=== PATIENT | male | born 1960 ===

== ENCOUNTER → 2022-03-06 13:17 | Outpatient (BNVA) | payer OTHER, SELFPAY | PROVIDERS: Visit Provider Surgery | DX: Z12.11 Encounter for screening for malignant neoplasm of colon (principal); Z86.010 Personal history of colon polyps | CPT/HCPCS: 99203 ==

== ENCOUNTER 2023-08-29 23:30 | Emergency (ER) | payer OTHER, SELFPAY ==
[2023-08-29 23:37] VITALS: BP 158/95; PULSE 66; RESP 16; TEMP 36.9; O2SAT 95
--- NOTE | 2023-08-29 23:40 | XRR_ITS ---
PROCEDURE INFORMATION: Exam: XR Right Hand Exam date and time: 08/30/2023 12:10 AM Age: 63 years old Clinical indication: Injury or trauma; Blunt trauma (contusions or hematomas); Right; Patient HX: C/O diffuse pain to RT hand after punching a wall yesterday. ; Additional info: Trauma pain TECHNIQUE: Imaging protocol: Radiologic exam of the right hand. Views: 3 or more views. COMPARISON: No relevant prior studies available. FINDINGS: Bones/joints: No evidence of acute fracture or dislocation. No erosive disease. Mild generalized degenerative change. Soft tissues: Normal. XR/XR hand RT min 3V* [id number] IMPRESSION: No acute bony injury.
--- NOTE | 2023-08-29 23:51 | W.ED.UPPEXIN ---
HPI - Extremity Injury (Upper) General: Chief Complaint: Extremity Injury, Upper Stated Complaint: Rt hand Swollen Time Seen by Provider: 08/29/23 23:48 Source: patient Mode of arrival: ambulatory Limitations: no limitations History of Present Illness: Patient is a 63-year-old male who presents to ED today for evaluation of a right hand injury that he sustained yesterday after punching a wall. Patient states he has had previous punching injuries and states he has broken that hand before several years ago. complaint: injury to: right and hand Onset (ago): day(s) (yesterday) Other Extremity Injury: Right: hand Other injuries: none Handedness: right Place: home Severity: moderate Relieving factors: immobilization Exacerbating factors: movement of extremity Context: direct blow Associated symptoms: Reports no associated symptoms Review of Systems Musc: Reports: extremity pain (R hand) and extremity swelling (dorsum R hand) Skin/Breast: Reports: other (no abrasions/lacerations) Neuro: Reports: numbness in extremities and sensory changes PFSH ED PFSH: Medical History History of colon polyps Borderline diabetes Colon cancer screening Surgical History Hx of appendectomy Hx of colonoscopy with polypectomy Hx of cholecystectomy Social History Smoking and tobacco/nicotine status: current every day tobacco/nicotine user Physical Exam Const: COMMON NORMALS: no acute distress, patient oriented x3, no limitations, alert and well nourished Extremity: COMMON NORMALS: capillary refill normal GENERAL: Yes normal exam except as noted RIGHT UPPER EXTREMITY: Yes hand & digits (TTP dorsum R hand mainly to 2-4 metacarpals and MCP joints) Right hand and digits: Yes neurovascular exam (normal) Neuro: COMMON NORMALS: patient oriented x3, moves all extremities, no focal motor deficits and no sensory deficits noted SENSORIUM/ORIENTATION: Yes alert Skin: TRAUMA: no lacerations or abrasions Course Vital Signs: Vital signs: Vital Signs Temperature 98.5 F 08/29/23 23:37 Pulse Rate 66 08/29/23 23:37 Respiratory Rate 16 08/29/23 23:37 Blood Pressure 158/95 08/29/23 23:37 Pulse Oximetry 95 08/29/23 23:37 Oxygen Delivery Me thod Room Air 08/29/23 23:37 MDM - Extremity Injury (Upper) Medical Decision Making Personal interpretation of patient's hand XR showing no acute fracture. He has old deformity to his fifth metacarpal. Patient will be discharged with instructions for ice, elevation, OTC analgesics. He can follow-up with primary care in 1 to 2 weeks if symptoms do not seem to be improving. XR interpretation done by ED provider, pending radiology final review Discharge Plan Discharge Patient Disposition: Home Clinical Impression: Contusion of hand, right Qualifiers: Encounter type: initial encounter Qualified Code(s): S60.221A - Contusion of right hand, initial encounter Condition: Stable Prescriptions: No Action lisinopril 20 mg tablet 20 mg PO DAILY metoprolol tartrate 100 mg tablet 100 mg PO BID ascorbate calcium (vitamin C) 500 mg tablet 500 mg PO DAILY glimepiride 4 mg tablet 4 mg PO DAILY potassium citrate PO .1 daily peg 3350-electrolytes [Golytely] 236-22.74-6.74 -5.86 gram recon soln 240 ml PO Q10M Qty: 4000 0RF Rx Instructions: until fecal effluent is clear Discharge Orders: Discharge ED (Routine); Ordered 08/30/23 Ordered By: Morena Cisneros Patient Instructions: Contusion Coding Level of Care Code ED Analysis Engineer for [facility]
[2023-08-30 00:24] VITALS: PULSE 89; RESP 16; O2SAT 97
== END 2023-08-30 00:29 | disposition home or self-care (01) ==
PROVIDERS: Emergency Provider Physician Assistant
DX: S60.221A Contusion of right hand, initial encounter (principal); Z79.84 Long term (current) use of oral hypoglycemic drugs; Z72.0 Tobacco use; W22.09XA Striking against other stationary object, initial encounter
CPT/HCPCS: 73130; 99283

== ENCOUNTER 2024-01-08 13:07 | Emergency (ER) | payer OTHER, MEDICARE, SELFPAY ==
--- NOTE | 2024-01-08 14:31 | ED_ITS ---
HPI - Extremity Injury (Upper) General: Chief Complaint: Extremity Injury, Upper Stated Complaint: Right arm bruises and pain Time Seen by Provider: 01/08/24 14:28 History of Present Illness: 63-year-old male patient was removing a heavy recliner on Friday when he felt a pop in the lower part of his biceps. Patient states that since then he noticed some increasing bruising to the biceps area of the arm. Patient also reports tenderness in the distal part of the biceps. Patient denies use of blood thinners. Patient has distal pulses and sensation intact. Patient has good range of motion of the arm. Review of Systems General: Reports: 10 or more systems reviewed and unremarkable except in HPI and below Musc: Reports: extremity pain PFSH ED PFSH: Medical History History of colon polyps Borderline diabetes Colon cancer screening Surgical History Hx of appendectomy Hx of colonoscopy with polypectomy Hx of cholecystectomy Social History Smoking and tobacco/nicotine status: current every day tobacco/nicotine user Physical Exam Const: COMMON NORMALS: alert HENMT: COMMON NORMALS: normocephalic HEAD & SCALP: normocephalic Neck/C-Spine: COMMON NORMALS: full ROM Chest: COMMONS NORMALS: normal inspection of the chest Resp: COMMON NORMALS: normal respiratory effort Cardio: COMMON NORMALS: regular rate RATE: regular rate GI: COMMON NORMALS: Soft to palpation and non-tender PALPATION: Yes Soft to palpation Back/Pelvis: COMMON NORMALS: thoracic and lumbar spine normal to inspection Extremity: RIGHT UPPER EXTREMITY: Yes upper arm (Distal bruising and tenderness to the arm.) Right upper arm: Yes inspection, Yes palpation and Yes neurovascular exam Neuro: SENSORIUM/ORIENTATION: Yes alert Skin: COMMON NORMALS: turgor normal GENERAL SKIN EXAM: turgor normal Course Vital Signs: Vital signs: Vital Signs Temperature 97.9 F 01/08/24 14:33 Pulse Rate 77 01/08/24 14:33 Respiratory Rate 18 01/08/24 14:33 Blood Pressure 167/101 01/08/24 14:33 Pulse Oximetry 97 01/08/24 14:33 Oxygen Delivery Me thod Room Air 01/08/24 14:33 MDM - Extremity Injury (Upper) Medical Decision Making 63-year-old male patient comes in today for complaints of injury to the right upper arm. Patient reports on Friday he was pulling and felt a pop in the biceps area of his arm. Since then he has had pain and discomfort to the biceps of the right arm. On exam he has a distal bruising and tenderness of the biceps area. Normal range of motion. Distal pulses and sensation are intact. Differential diagnosis includes but not limited to biceps tendon rupture, contusion, hematoma, sprain. Believe patient most likely has a biceps tendon rupture. We will go ahead and refer to orthopedics for further evaluation and treatment. It appears to be a distal rupture and most likely require only conservative treatment. No radiology studies performed this visit Discharge Plan Discharge Patient Disposition: Home Clinical Impression: Rupture of biceps tendon Qualifiers: Encounter type: initial encounter Laterality: right Qualified Code(s): S46.211A - Strain of muscle, fascia and tendon of other parts of biceps, right arm, initial encounter Condition: Stable Prescriptions: New hydrocodone-acetaminophen 5-325 mg tablet 1 tab PO Q8H PRN (Reason: pain) Qty: 10 0RF No Action lisinopril 20 mg tablet 20 mg PO DAILY metoprolol tartrate 100 mg tablet 100 mg PO BID ascorbate calcium (vitamin C) 500 mg tablet 500 mg PO DAILY glimepiride 4 mg tablet 4 mg PO DAILY potassium citrate PO .1 daily peg 3350-electrolytes [Golytely] 236-22.74-6.74 -5.86 gram recon soln 240 ml PO Q10M Qty: 4000 0RF Rx Instructions: until fecal effluent is clear Discharge Orders: Discharge ED (Routine); Ordered 01/08/24 Ordered By: Morgan Duggan Discharge Diet: Usual diet Discharge Activity: Increase activity as tolerated Patient Instructions: Biceps Tendon Rupture Activity Restrictions/Additional Instructions: Use cold packs to the arm for pain and discomfort. Activity as tolerated. Light activity is recommended. Avoid straining or pulling hard on the arm. Follow-up with dentofacial orthopedics dentist for further evaluation and treatment. Return to ED for new concerns. Coding Level of Care Code ED Sifter And Miller for [facility]
[2024-01-08 14:33] VITALS: BP 167/101; PULSE 77; RESP 18; TEMP 36.6; O2SAT 97; BMI 25.8
[2024-01-08 15:00] VITALS: BP 158/99; PULSE 72; RESP 14; TEMP 36.6; O2SAT 98
--- NOTE | 2024-01-08 16:31 | DCPLANNER ---
messaged ortho for er f/u
== END 2024-01-08 14:58 | disposition home or self-care (01) ==
PROVIDERS: Emergency Provider Nurse Practitioner Family
DX: S46.211A Strain of muscle, fascia and tendon of other parts of biceps, right arm, initial encounter (principal); Z79.84 Long term (current) use of oral hypoglycemic drugs; Z72.0 Tobacco use; X50.0XXA Overexertion from strenuous movement or load, initial encounter
CPT/HCPCS: 99283

== ENCOUNTER → 2025-02-10 08:45 | Outpatient (BNVA) | payer OTHER, SELFPAY | PROVIDERS: Visit Provider Student in an Organized Health Care Education/Training Program | DX: R19.7 Diarrhea, unspecified (principal) | CPT/HCPCS: 99204 ==

== ENCOUNTER 2025-03-08 09:51 | Day surgery (SDC) | payer OTHER, SELFPAY ==
[2025-03-08 10:57] VITALS: BP 113/85; PULSE 72; RESP 18; TEMP 36.1; BMI 26.5
--- NOTE | 2025-03-08 11:20 | W.PM.OPSFHP ---
Same Day Surgery H&P Indication for Procedure/HPI DATE OF PROCEDURE: March 08, 2025 CHIEF COMPLAINT/INDICATIONFOR SURGICAL PROCEDURE: changes in bowel habits PREOP DIAGNOSIS: changes in bowel habits PLANNED PROCEDURE: Operation Date: 03/08/25 12:15 Proposed Procedures p Colonoscopy 03231 Z86.010 R19.7(Not Applicable) - Karlo Gay MD Medications/Allergies* Home Medications ?Medication ?Instructions ?Recorded ?Confirmed ?Type ascorbate calcium (vitamin C) 500 500 mg PO DAILY 03/06/22 03/04/25 History mg tablet glimepiride 4 mg tablet 4 mg PO DAILY 03/06/22 03/04/25 History lisinopril 20 mg tablet 20 mg PO DAILY 03/06/22 03/04/25 History metoprolol tartrate 100 mg tablet 50 mg PO BID 03/06/22 03/08/25 History potassium citrate 1 tab PO DAILY 03/06/22 03/04/25 History Allergies/Adverse Reactions Allergy/AdvReac Type Severity Reaction Status Date / Time No Known Allergies Allergy Verified 03/04/25 09:12 Current Medications: Generic Name Dose Route Start Last Admin Trade Name Freq PRN Reason Stop Dose Admin Sodium Chloride 1,000 mls @ 15 mls/hr 03/08/25 10:46 03/08/25 11:08 Sodium Chloride 0.9% IV 03/09/25 10:45 15 mls/hr .Q24H PRN Administration COLONOSCOPY FLUIDS Pertinent History/Comorbid Conditions* Medical History (Updated 01/16/24 @ 00:02 by AYLA Zhang) History of colon polyps Borderline diabetes Colon cancer screening Surgical History (Updated 03/06/22 @ 14:16 by Kishor Darnell DO) Hx of appendectomy Hx of colonoscopy with polypectomy Hx of cholecystectomy Social History Smoking and tobacco/nicotine status: never used tobacco/nicotine Pertinent Exam Findings alert, oriented x 3, clear to auscultation bilaterally, regular rate & rhythm and procedure specific exam findings abdomen soft, nt, nd Recommendations Risks and benefits of procedure reviewed and Patient/family agree to proceed Surgery/Procedure today Coding Level of Care Code Acute Code for Chg Fwd
--- NOTE | 2025-03-08 11:46 | ANES.PREANE2 ---
Pre-Anesthetic Assessment Height/Weight: Height 1.78 m Weight 83.915 kg Temp Pulse Resp BP O2 Del Method 97.0 F L 72 18 113/85 Room Air 03/08/25 10:57 03/08/25 10:57 03/08/25 10:57 03/08/25 10:57 03/08/25 10:57 Preop Diagnosis: changes in bowel habits Operation Date: 03/08/25 12:15 Proposed Procedures p Colonoscopy 40140 Z86.010 R19.7(Not Applicable) - Karlo Gay MD Familial anesthetic complications: None Was Beta Lenny taken within 24 hours: Yes Was Clonidine taken within 24 hours: N/A Last intake: Intake Last Liquid Date 03/07/25 Last Liquid Time 07:30 Last Solid Date 03/06/25 Last Solid Time 21:00 Social Tobacco (Chewing tobacco. None this morning) and No alcohol Exam alert, oriented x 3, clear to auscultation bilaterally and regular rate & rhythm Airway Submandibular: within normal limits Cervical ROM: within normal limits Mallampati: Class III Dentition: false (Upper dentures, few teeth on bottom) History/ROS No significant history except as noted and No significant complaints Pulmonary None reported CV/HEM Coronary Artery Disease and Hypertension Hx kidney stones Hepatic None reported GI None reported Metabolic Diabetes Mellitus and Hyperlipidemia Musc/skel Osteoarthritis/DJD Neuropsych None reported Anesthetic Plan ASA status: 3 Anesthesia: Anesthesia Evaluation, General and MAC Risk of > 500 ml blood loss (7ml/kg in children): No Medications/Allergies Home Medications ?Medication ?Instructions ?Recorded ?Confirmed ?Last Taken ?Type ascorbate calcium (vitamin C) 500 500 mg PO DAILY 03/06/22 03/04/25 03/04/25 History mg tablet glimepiride 4 mg tablet 4 mg PO DAILY 03/06/22 03/04/25 03/04/25 History lisinopril 20 mg tablet 20 mg PO DAILY 03/06/22 03/04/25 03/04/25 History metoprolol tartrate 100 mg tablet 50 mg PO BID 03/06/22 03/08/25 03/08/25 History 0800 potassium citrate 1 tab PO DAILY 03/06/22 03/04/25 03/04/25 History hydrocodone 5 mg-acetaminophen 325 1 tab PO Q8H PRN pain #10 tabs 01/08/24 03/04/25 03/04/25 Rx mg tablet ondansetron 8 mg disintegrating 8 mg PO Q8H PRN nausea and 02/10/25 03/04/25 03/04/25 Rx tablet vomiting #3 tabs Allergies Allergy/AdvReac Type Severity Reaction Status Date / Time No Known Allergies Allergy Verified 03/04/25 09:12 Current Medications Generic Name Dose Route Start Last Admin Trade Name Freq PRN Reason Stop Dose Admin Sodium Chloride 1,000 mls @ 15 mls/hr 03/08/25 10:46 03/08/25 11:08 Sodium Chloride 0.9% IV 03/09/25 10:45 15 mls/hr .Q24H PRN Administration COLONOSCOPY FLUIDS PFSH Anesthesia Medical History History of colon polyps Borderline diabetes Colon cancer screening Surgical History Hx of appendectomy Hx of colonoscopy with polypectomy Hx of cholecystectomy Social History Smoking and tobacco/nicotine status: never used tobacco/nicotine
--- NOTE | 2025-03-08 12:20 | PC.NURSE ---
cecum no reached d/t poor prep
[2025-03-08 12:25] VITALS: BP 107/78; PULSE 64; RESP 16; O2SAT 94
[2025-03-08 12:47] VITALS: BP 133/68; PULSE 73; RESP 16; O2SAT 95
--- NOTE | 2025-03-08 13:15 | ANE.PACU2 ---
Inpatient post-anesthesia follow up: Airway intact: Yes Vital signs: Temperature 97.0 F Pulse Rate 73 Respiratory Rate 16 Blood Pressure 133/68 Pulse Oximetry 95 Oxygen Delivery Me thod Room Air Oxygen Flow Rate Fraction of Inspir ed Oxygen Hydration adequate: Yes Nausea and vomiting: No Pain level: 1 Mental status: Baseline
== END 2025-03-08 13:15 | disposition home or self-care (01) ==
PROVIDERS: Visit Provider Student in an Organized Health Care Education/Training Program
PROC: 0DJD8ZZ Inspection of Lower Intestinal Tract, Via Natural or Artificial Opening Endoscopic (ICD-10-PCS; CPT 45378; principal; 2025-03-08 12:15)
DX: R19.4 Change in bowel habit (principal); I25.10 Atherosclerotic heart disease of native coronary artery without angina pectoris; I10 Essential (primary) hypertension; E11.9 Type 2 diabetes mellitus without complications; E78.5 Hyperlipidemia, unspecified; F17.220 Nicotine dependence, chewing tobacco, uncomplicated
CPT/HCPCS: 36416; 45378; 82962; J2704; J7030

== ENCOUNTER 2025-04-21 12:07 | Emergency (ER) | payer OTHER, SELFPAY ==
[2025-04-21 12:09] VITALS: BP 121/83; PULSE 75; RESP 18; TEMP 36.7; O2SAT 98; BMI 27.2
--- NOTE | 2025-04-21 12:48 | ED_ITS ---
HPI - Extremity Problem 2 General: Chief complaint: Extremity Problem,Nontraumatic Stated complaint: Both leg Painful shakey Time Seen by Provider: 04/21/25 12:46 History of Present Illness: 64-year-old man presents emergency room with concerns for weak and shaky legs. He has a history of diabetes and hypertension. He is also had low potassium in the past and is concerned this might be what it is. He contacted the [facility] and they told him to come to the emergency room. No fevers. No altered mental status. No chest pain. Related Data Home Medications ?Medication ?Instructions ?Recorded ?Confirmed ascorbate calcium (vitamin C) 500 500 mg PO DAILY 02/1803/04/25 mg tablet glimepiride 4 mg tablet 4 mg PO DAILY 03/06/2203/04 lisinopril 20 mg tablet 20 mg PO DAILY 03/06/2202/18 metoprolol tartrate 100 mg tablet 50 mg PO BID 2 03/08/25 potassium citrate 1 tab PO DAILY 03/06/2202/18 Previous Rx's ?Medication ?Instructions ?Recorded hydrocodone 5 mg-acetaminophen 325 1 tab PO Q8H PRN pa in #10 tabs 01/08/24 mg tablet ondansetron 8 mg disintegrating 8 mg PO Q8H PRN nausea and 02/10/25 tablet vomiting #3 tabs cephalexin 500 mg tablet 500 mg PO TID 5 days #15 tab s 04/21/25 Allergies Allergy/AdvReac Type Severity Reaction Status Date / Time No Known Allergies Allergy Verified 03/04/25 09:12 Review of Systems 2 Narrative: Constitutional symptoms: Negative except as documented in HPI. Skin symptoms: Negative except as documented in HPI. Eye symptoms: Negative except as documented in HPI. ENMT symptoms: Negative except as documented in HPI. Respiratory symptoms: Negative except as documented in HPI. Cardiovascular symptoms: Negative except as documented in HPI. Gastrointestinal symptoms: Negative except as documented in HPI. Genitourinary symptoms: Negative except as documented in HPI. Musculoskeletal symptoms: Negative except as documented in HPI. Neurologic symptoms: Negative except as documented in HPI. Psychiatric symptoms: Negative except as documented in HPI. Endocrine symptoms: Negative except as documented in HPI. PFS ED 2 PFSH: Medical History (Updated 04/21/25 @ 14:07 by Lani Perdomo MD) History of colon polyps Borderline diabetes Colon cancer screening Surgical History Hx of appendectomy Hx of colonoscopy with polypectomy Hx of cholecystectomy Social History Smoking and tobacco/nicotine status: never used tobacco/nicotine Physical Exam 2 Narrative: EXAM NARRATIVE: General: Alert, no acute distress. Skin: Warm, dry. Head: Normocephalic, atraumatic. Neck: Supple, trachea midline. Eye: Extraocular movements are intact. Ears, nose, mouth and throat: mucosa moist. Cardiovascular: Regular, Normal peripheral perfusion. Respiratory: Lungs are clear to auscultation, respirations are non-labored, breath sounds are equal, Symmetrical chest wall expansion. Gastrointestinal: Soft, Nontender, Non distended Musculoskeletal: Normal ROM, no deformity. Neurological: Alert and oriented, No focal neurological deficit observed. Psychiatric: Cooperative, appropriate mood & affect. Course 2 Vital Signs: Vital signs: Vital Signs Temperature 98.1 F 04/21/25 12:09 Pulse Rate 73 04/21/25 14:57 Respiratory Rate 18 04/21/25 12:09 Blood Pressure 108/78 04/21/25 14:57 Pulse Oximetry 93 04/21/25 14:57 Oxygen Delivery Me thod Room Air 04/21/25 12:09 MDM - Extremity (Nontraumatic) Medical Decision Making Medical decision making: Differential diagnosis for patient presenting with generalized weakness including but not limited to and based on the above HPI, review of systems and physical exam: Sepsis. Dehydration. Renal failure. Electrolyte abnormalities. Anemia. Congestive heart failure. Hypotension. Coronary syndrome. Hepatitis. Cirrhosis. Infections such as pneumonia, urinary tract infection, [place]ne illness, Cellulitis, Viral infections including influenza and Covid-19. Workup: labwork and lab/exam driven imaging ordered to evaluate, rule in and rule out above pathologies. Lab Review: Laboratory results were reviewed and interpreted by myself the emergency room physician. No leukocytosis. No anemia. Potassium is normal. Renal function is normal. Blood glucose is elevated at 355. Fluids were given. Urinalysis is positive for signs of infection. I reviewed the patient's medical record. Reexamination: Patient remained stable. No increased work of breathing. No altered mental status. No focal motor deficits. Assessment and plan: Dehydration Urinary tract infection ? Normal saline bolus and IV Rocephin - Discharged home - Discussed plan with patient. Answered any questions. - Evaluation and treatment of this problem were appropriate in the emergency setting. Lab Data 04/21/25 13:35 04/21/25 13:35 Laboratory Results WBC 7.19 10^3/uL (3.29-11.43) 04/21/25 13:35 RBC 5.16 10^6/uL (3.85-5.65) 04/21/25 13:35 Hgb 15.60 g/dL (11.27-16.99) 04/21/25 13:35 Hct 44.5 % (37-53) 04/21/25 13:35 MCV 86.2 fl (82-101) 04/21/25 13:35 MCH 30.2 pg (27-33) 04/21/25 13:35 MCHC 35.1 g/dL (30-55) 04/21/25 13:35 RDW 12.9 % (12.1-15.1) 04/21/25 13:35 Plt Count 170 10^3/cmm (157-399) 04/21/25 13:35 MPV 10.4 fL (7.4-10.4) 04/21/25 13:35 Neut % (Auto) 68.4 % 04/21/25 13:35 Lymph % (Auto) 22.4 % 04/21/25 13:35 Wetzel % (Auto) 8.3 % 04/21/25 13:35 Eos % (Auto) 0.1 % 04/21/25 13:35 Baso % (Auto) 0.4 % 04/21/25 13:35 Neut # (Auto) 4.91 10^3/uL (1.8-7.7) 04/21/25 13:35 Lymph # (Auto) 1.6 10^3/uL (0.8-4.8) 04/21/25 13:35 Wetzel # (Auto) 0.6 10^3/uL (0.2-0.9) 04/21/25 13:35 Eos # (Auto) 0.0 10^3/uL (0.0-0.8) 04/21/25 13:35 Baso # (Auto) 0.0 10^3/uL (0.0-0.1) 04/21/25 13:35 Nucleated RBC % (auto) 0 % 04/21/25 13:35 Nucleated RBCs # 0.0 /100WBC 04/21/25 13:35 Sodium 138 mmol/L (136-145) 04/21/25 13:35 Potassium 3.7 mmol/L (3.5-5.1) 04/21/25 13:35 Chloride 100 mmol/L (98-107) 04/21/25 13:35 Carbon Dioxide 24 mmol/L (22-29) 04/21/25 13:35 Anion Gap 17.7 (5-19) 04/21/25 13:35 BUN 14 mg/dL (8-23) 04/21/25 13:35 Creatinine 0.8 mg/dL (0.7-1.2) 04/21/25 13:35 GFR Calculation 96.7 mL/min (90-130) 04/21/25 13:35 Glucose 355 mg/dL (65-115) H 04/21/25 13:35 Calculated Osmolality 301 mOsm/kg (285-295) H 04/21/25 13:35 Lactic Acid 2.3 mmol/L (0.5-2.2) H 04/21/25 13:35 Calcium 9.6 mg/dL (8.5-10.5) 04/21/25 13:35 Magnesium 2.1 mg/dL (1.7-2.3) 04/21/25 13:35 Total Bilirubin 0.9 mg/dL (0.15-1.2) 04/21/25 13:35 AST 26 U/L (0-40) 04/21/25 13:35 ALT 43 U/L (0-41) H 04/21/25 13:35 Alkaline Phosphatase 92 U/L (40-130) 04/21/25 13:35 Total Protein 6.8 g/dL (6.6-8.7) 04/21/25 13:35 Albumin 4.0 g/dL (3.5-5.2) 04/21/25 13:35 Globulin 2.8 g/dL (1.3-4.6) 04/21/25 13:35 Urine Color Yellow (Yellow) 04/21/25 13:25 Urine Appearance Clear (CLEAR) 04/21/25 13:25 Urine pH 5.5 (5-7) 04/21/25 13:25 Ur Specific [place] 1.053 (1.005-1.030) H 04/21/25 13:25 Urine Protein 1+ (Negative) A 04/21/25 13:25 Urine Glucose (UA) 3+ (Normal) H 04/21/25 13:25 Urine Ketones Trace (Negative) 04/21/25 13:25 Urine Blood Negative (Negative) 04/21/25 13:25 Urine Nitrate Negative (Negative) 04/21/25 13:25 Urine Bilirubin Negative (Negative) 04/21/25 13:25 Urine Urobilinogen 1.0 mg/dL (Negative) 04/21/25 13:25 Ur Leukocyte Esterase Negative (Negative) 04/21/25 13:25 Urine RBC None /hpf (0-2) 04/21/25 13:25 Urine WBC 5-10 /hpf (0-5) H 04/21/25 13:25 Ur Squamous Epith Cells 0-4 /hpf (0-5) H 04/21/25 13:25 Amorphous Sediment Not Reportable 04/21/25 13:25 Urine Bacteria None /hpf (NONE) 04/21/25 13:25 Fine Granular Casts 5-10 /lpf H 04/21/25 13:25 Urine Mucus 1+ /hpf 04/21/25 13:25 No radiology studies performed this visit Discharge Plan Discharge Patient Disposition: Home Clinical Impression: Generalized weakness, Dehydration, UTI (urinary tract infection) Condition: Stable Prescriptions: New cephalexin 500 mg tablet 500 mg PO TID 5 Days Qty: 15 0RF No Action lisinopril 20 mg tablet 20 mg PO DAILY metoprolol tartrate 100 mg tablet 50 mg PO BID ascorbate calcium (vitamin C) 500 mg tablet 500 mg PO DAILY glimepiride 4 mg tablet 4 mg PO DAILY potassium citrate 1 tab PO DAILY ondansetron 8 mg tablet,disintegrating 8 mg PO Q8H PRN (Reason: nausea and vomiting) Qty: 3 0RF hydrocodone-acetaminophen 5-325 mg tablet 1 tab PO Q8H PRN (Reason: pain) Qty: 10 0RF Discharge Orders: Discharge ED (Routine); Ordered 04/21/25 Ordered By: Lani Perdomo Discharge Diet: Usual diet Discharge Activity: Increase activity as tolerated Patient Instructions: Urinary Tract Infection in Older Adults (ED), Opioid Safety, Pain Management, Patient Portal & Charo Instructions Activity Restrictions/Additional Instructions: Thank you for choosing [facility] for your healthcare needs today. You have been screened and evaluated and felt safe for discharge. Health conditions do change or evolve sometimes and as such it is important that you follow up with your Primary Doctor to be re checked, 3-5 days is a general good time frame for follow up. You are always welcome to return to the ED for re assessment if your symptoms are worsening or you have new concerns Print Language: Greenlandic Coding Level of Care Code ED Senior Housekeeper for [facility]read [facility]ham
[2025-04-21 13:31] LABS: Glucose Urine UA 3+ (Normal); Nitrate Urine Negative (Negative)
[2025-04-21 13:44] LABS: Hematocrit 44.5 % (37-53); Hemoglobin 15.60 g/dL (11.27-16.99); Mean Corpuscular HGB Conc 35.1 g/dL (30-55); Mean Corpuscular Hemoglobin 30.2 pg (27-33); Mean Corpuscular Volume 86.2 fl (82-101); Nucleated Red Blood Cells % 0 %; Platelet Count 170 10^3/cmm (157-399); Red Blood Count 5.16 10^6/uL (3.85-5.65); White Blood Count 7.19 10^3/uL (3.29-11.43)
[2025-04-21 13:47] LABS: Specific Gravity, Urine 1.053 (1.005-1.030)
[2025-04-21 14:01] LABS: Lactic Sepsis W/Reflex 2.3 mmol/L (0.5-2.2)
[2025-04-21] MEDS: cefTRIAXone 1,000 mg SDV 1000 MG IVP (14:01)
[2025-04-21 14:02] LABS: Alanine Aminotransferase 43 U/L (0-41); Albumin Level 4.0 g/dL (3.5-5.2); Alkaline Phosphatase 92 U/L (40-130); Anion Gap 17.7 (5-19); Aspartate Amino Transferase 26 U/L (0-40); Blood Urea Nitrogen 14 mg/dL (8-23); Calcium 9.6 mg/dL (8.5-10.5); Carbon Dioxide 24 mmol/L (22-29); Chloride 100 mmol/L (98-107); Creatinine Clr Calc Pharmacy 100.5593; Globulin 2.8 g/dL (1.3-4.6); Glucose 355 mg/dL (65-115); Magnesium 2.1 mg/dL (1.7-2.3); Osmolality Calculated 301 mOsm/kg (285-295); Potassium 3.7 mmol/L (3.5-5.1); Sodium 138 mmol/L (136-145); Total Protein 6.8 g/dL (6.6-8.7)
[2025-04-21 14:57] VITALS: BP 108/78; PULSE 73; O2SAT 93
[2025-04-21 15:28] LABS: Reflex Lactate Order REFLEX LACTIC ORDERD
== END 2025-04-21 14:58 | disposition home or self-care (01) ==
PROVIDERS: Emergency Provider Emergency Medicine
DX: R53.1 Weakness (principal); E86.0 Dehydration; N39.0 Urinary tract infection, site not specified
CPT/HCPCS: 36415; 80053; 81001; 83605; 83735; 85025; 87040; 96361; 96374; 99284; J0696; J7030

== ENCOUNTER 2025-05-10 14:06 | Emergency (ER) | payer OTHER, SELFPAY ==
[2025-05-10 14:09] VITALS: BP 116/81; PULSE 112; TEMP 36.8; O2SAT 98
--- NOTE | 2025-05-10 14:23 | W.ED.ABDPA2 ---
HPI - Abdominal Pain General: Chief Complaint: Abdominal Pain Stated Complaint: abd pain , bloating, chills Time Seen by Provider: 05/10/25 14:19 History of Present Illness: 65-year-old male presents emergency room planing of abdominal pain bloating and chills difficult time swallowing. He is able to swallow saliva he has had some nausea and vomiting is complaining of abdominal pain as well Associated Symptoms: Denies chills, dysuria and fever(s) Related Data Home Medications ?Medication ?Instructions ?Recorded ?Confirmed ascorbate calcium (vitamin C) 500 500 mg PO DAILY 03/06/22 03/04/25 mg tablet glimepiride 4 mg tablet 4 mg PO DAILY 03/06/22 03/04/25 lisinopril 20 mg tablet 20 mg PO DAILY 03/06/22 03/04/25 metoprolol tartrate 100 mg tablet 50 mg PO BID 03/06/22 03/08/25 potassium citrate 1 tab PO DAILY 03/06/22 03/04/25 Previous Rx's ?Medication ?Instructions ?Recorded hydrocodone 5 mg-acetaminophen 325 1 tab PO Q8H PRN pain #10 tabs 01/08/24 mg tablet ondansetron 8 mg disintegrating 8 mg PO Q8H PRN nausea and 02/10/25 tablet vomiting #3 tabs Allergies Allergy/AdvReac Type Severity Reaction Status Date / Time No Known Allergies Allergy Verified 05/10/25 14:18 Review of Systems Const: Denies: fever(s) or chills Card: Denies: chest pain Resp: Denies: dyspnea GI: Denies: abdominal pain : Denies: dysuria, urinary frequency or urinary urgency Musc: Denies: neck pain or back pain Skin/Breast: Denies: rash PFSH ED PFSH: Medical History History of colon polyps Borderline diabetes Colon cancer screening Surgical History Hx of appendectomy Hx of colonoscopy with polypectomy Hx of cholecystectomy Social History Smoking and tobacco/nicotine status: never used tobacco/nicotine Physical Exam Const: GENERAL APPEARANCE: cooperative ORIENTATION/CONSCIOUSNESS: Yes awake, Yes oriented to person, Yes oriented to place and Yes oriented to time HENMT: COMMON NORMALS: normocephalic, atraumatic and hearing grossly normal bilaterally HEAD & SCALP: normocephalic and atraumatic Resp: COMMON NORMALS: normal respiratory effort, No retractions, No use of accessory muscles and clear to auscultation bilaterally AUSCULTATION: clear to auscultation bilaterally Cardio: COMMON NORMALS: regular rate, regular rhythm and No murmurs present (Cardio) RATE: regular rate RHYTHM: regular rhythm GI: COMMON NORMALS: Soft to palpation and No hepatosplenomegaly present AUSCULTATION: Yes normoactive bowel sounds PALPATION: Yes Soft to palpation, No Tenderness to palpation present (GI), No Guarding due to palpation present (GI) and Yes No hepatosplenomegaly present Extremity: COMMON NORMALS: normal to inspection, capillary refill normal, no clubbing, cyanosis or edema, no calf tenderness and no pedal edema Neuro: SENSORIUM/ORIENTATION: Yes oriented to person, Yes oriented to place and Yes oriented to time Skin: COMMON NORMALS: no rashes or lesions noted GENERAL SKIN EXAM: no rashes or lesions noted Course Vital Signs: Vital signs: Vital Signs Temperature 98.2 F 05/10/25 14:09 Pulse Rate 112 H 05/10/25 14:09 Blood Pressure 116/81 05/10/25 14:09 Pulse Oximetry 98 05/10/25 14:09 Oxygen Delivery Me thod Room Air 05/10/25 14:09 MDM - Abdominal Pain Lab Data 05/10/25 14:25 05/10/25 14:25 Labs/Radiology: Radiology Impressions Chest X-Ray 05/10/25 14:30 IMPRESSION: No acute cardiopulmonary findings radiographically. Laboratory Results WBC 13.49 10^3/uL (3.29-11.43) H 05/10/25 14:25 RBC 5.53 10^6/uL (3.85-5.65) 05/10/25 14:25 Hgb 16.80 g/dL (11.27-16.99) 05/10/25 14:25 Hct 47.6 % (37-53) 05/10/25 14:25 MCV 86.1 fl (82-101) 05/10/25 14:25 MCH 30.4 pg (27-33) 05/10/25 14:25 MCHC 35.3 g/dL (30-55) 05/10/25 14: RDW 12.6 % (12.1-15.1) 05/10/25 14: Plt Count 192 10^3/cmm (157-399) 05/10/25 14:25 MPV 10.3 fL (7.4-10.4) 05/10/25 14: Neut % (Auto) 74.8 % 05/10/25 14:25 Lymph % (Auto) 14.7 % 05/10/25 14:25 [place] % (Auto) 9.5 % 05/10/25 14: Eos % (Auto) 0.1 % 05/10/25 14: Baso % (Auto) 0.2 % 05/10/25 14: Neut # (Auto) 10.10 10^3/uL (1.8-7.7) H 05/10/25 14: Lymph # (Auto) 2.0 10^3/uL (0.8-4.8) 05/10/25 14:25 [place] # (Auto) 1.3 10^3/uL (0.2-0.9) H 05/10/25 14:25 Eos # (Auto) 0.0 10^3/uL (0.0-0.8) 05/10/25 14:25 Baso # (Auto) 0.0 10^3/uL (0.0-0.1) 05/10/25 14: Nucleated RBC % (auto) 0 % 05/10/25 14: Nucleated RBCs # 0.0 /100WBC 05/10/25 14:25 Sodium 133 mmol/L (136-145) L 05/10/25 14:25 Potassium 3.9 mmol/L (3.5-5.1) 05/10/25 14:25 Chloride 93 mmol/L (98-107) L 05/10/25 14:25 Carbon Dioxide 22 mmol/L (22-29) 05/10/25 14:25 Anion Gap 21.9 (5-19) H 05/10/25 14:25 BUN 16 mg/dL (8-23) 05/10/25 14:25 Creatinine 0.8 mg/dL (0.7-1.2) 05/10/25 14:25 GFR Calculation 96.4 mL/min (90-130) 05/10/25 14:25 Glucose 319 mg/dL (65-115) H 05/10/25 14:25 Calculated Osmolality 289 mOsm/kg (285-295) 05/10/25 14:25 Calcium 9.7 mg/dL (8.5-10.5) 05/10/25 14:25 Total Bilirubin 1.8 mg/dL (0.15-1.2) H 05/10/25 14:25 AST 30 U/L (0-40) 05/10/25 14:25 ALT 45 U/L (0-41) H 05/10/25 14:25 Alkaline Phosphatase 94 U/L (40-130) 05/10/25 14:25 Total Protein 7.1 g/dL (6.6-8.7) 05/10/25 14:25 Albumin 4.1 g/dL (3.5-5.2) 05/10/25 14:25 Globulin 3.0 g/dL (1.3-4.6) 05/10/25 14:25 Lipase 12 U/L (13-60) L 05/10/25 14:25 Discharge Plan Discharge Condition: Stable Prescriptions: No Action lisinopril 20 mg tablet 20 mg PO DAILY metoprolol tartrate 100 mg tablet 50 mg PO BID ascorbate calcium (vitamin C) 500 mg tablet 500 mg PO DAILY glimepiride 4 mg tablet 4 mg PO DAILY potassium citrate 1 tab PO DAILY ondansetron 8 mg tablet,disintegrating 8 mg PO Q8H PRN (Reason: nausea and vomiting) Qty: 3 0RF hydrocodone-acetaminophen 5-325 mg tablet 1 tab PO Q8H PRN (Reason: pain) Qty: 10 0RF Print Language: Colombian Coding Level of Care Code ED Garbage Worker for [employer]
--- NOTE | 2025-05-10 14:29 | CTR_ITS ---
PROCEDURE INFORMATION: Exam: CT Neck With Contrast Exam date and time: 05/10/2025 3:48 PM Age: 65 years old Clinical indication: Dysphagia TECHNIQUE: Imaging protocol: Computed tomography of the neck with contrast. Radiation optimization: All CT scans at this facility use at least one of these dose optimization techniques: automated exposure control; mA and/or kV adjustment per patient size (includes targeted exams where dose is matched to clinical indication); or iterative reconstruction. Contrast material: OMNIPAQUE 350; Contrast volume: 50 ml; Contrast route: INTRAVENOUS (IV); COMPARISON: CR XR chest 1V portable [id number] 05/10/2025 2:33 PM RADIATION DOSE METRICS: Total DLP (mGy-cm): 159.2 FINDINGS: Salivary glands: Normal. Glands are normal in size. Pharynx: There is asymmetric enlargement of the left palatine with adjacent soft tissue inflammatory stranding. Within this region, there are multiple small rim enhancing fluid collections, the largest measuring 0.8 x 0.6 x 0.7 cm. There is mild associated mass effect with effacement of the oropharyngeal airway. Larynx: Unremarkable. Epiglottis is normal. Thyroid: Normal. No enlarged or calcified nodules. Trachea: Visualized trachea is unremarkable. Lungs: Unremarkable as visualized. Esophagus: Circumferential wall thickening involving the proximal esophagus, nonspecific. Lymph nodes: Prominent cervical chain lymph nodes, [id number], likely reactive. Bones/joints: Unremarkable. No acute fracture. Soft tissues: Unremarkable. No significant soft tissue swelling. CT/CT neck w con* [id number] IMPRESSION: 1. There are multiple small rim enhancing fluid collections adjacent to an enlarged and inflamed left palatine tonsil, consistent with left-sided peritonsillar abscesses. 2. Nonspecific circumferential wall thickening of the proximal esophagus which may reflect esophagitis or physiologic underdistention. Recommend clinical correlation for reflux or dysphagia. If symptoms persist, consider direct visualization with endoscopy for further evaluation.
--- NOTE | 2025-05-10 14:30 | XRR_ITS ---
PROCEDURE INFORMATION: Exam: XR Chest Exam date and time: 05/10/2025 2:33 PM Age: 65 years old Clinical indication: Cough and dyspnea; Additional info: Dyspnea/cough TECHNIQUE: Imaging protocol: Radiologic exam of the chest. Views: 1 view. COMPARISON: No relevant prior studies available. FINDINGS: Lungs: No infiltrates. No suspicious masses or nodules. Pleural spaces: No pleural effusions or pneumothorax. Heart/Mediastinum: Heart size within normal limits. No pulmonary vascular congestion. Bones/joints: No significant osseous lesion. No fractures. XR/XR chest 1V portable [id number] IMPRESSION: No acute cardiopulmonary findings radiographically.
[2025-05-10 14:36] LABS: Hematocrit 47.6 % (37-53); Hemoglobin 16.80 g/dL (11.27-16.99); Mean Corpuscular HGB Conc 35.3 g/dL (30-55); Mean Corpuscular Hemoglobin 30.4 pg (27-33); Mean Corpuscular Volume 86.1 fl (82-101); Nucleated Red Blood Cells % 0 %; Platelet Count 192 10^3/cmm (157-399); Red Blood Count 5.53 10^6/uL (3.85-5.65); White Blood Count 13.49 10^3/uL (3.29-11.43)
[2025-05-10 14:54] LABS: Alanine Aminotransferase 45 U/L (0-41); Albumin Level 4.1 g/dL (3.5-5.2); Alkaline Phosphatase 94 U/L (40-130); Anion Gap 21.9 (5-19); Aspartate Amino Transferase 30 U/L (0-40); Blood Urea Nitrogen 16 mg/dL (8-23); Calcium 9.7 mg/dL (8.5-10.5); Carbon Dioxide 22 mmol/L (22-29); Chloride 93 mmol/L (98-107); Creatinine Clr Calc Pharmacy 99.2004; Globulin 3.0 g/dL (1.3-4.6); Glucose 319 mg/dL (65-115); Lipase 12 U/L (13-60); Osmolality Calculated 289 mOsm/kg (285-295); Potassium 3.9 mmol/L (3.5-5.1); Sodium 133 mmol/L (136-145); Total Protein 7.1 g/dL (6.6-8.7)
--- NOTE | 2025-05-10 15:31 | CTR_ITS ---
PROCEDURE INFORMATION: Exam: CT Abdomen And Pelvis With Contrast Exam date and time: 05/10/2025 3:48 PM Age: 65 years old Clinical indication: Abdominal pain; Generalized; Prior surgery; Surgery date: 6+ months; Surgery type: Gb, appy; Additional info: Abdominal pain, changed to with contrast per Dr laird TECHNIQUE: Imaging protocol: Computed tomography of the abdomen and pelvis with contrast. Radiation optimization: All CT scans at this facility use at least one of these dose optimization techniques: automated exposure control; mA and/or kV adjustment per patient size (includes targeted exams where dose is matched to clinical indication); or iterative reconstruction. Contrast material: OMNIPAQUE 350; Contrast volume: 75 ml; Contrast route: INTRAVENOUS (IV); COMPARISON: CR XR chest 1V portable [id number] 05/10/2025 2:33 PM RADIATION DOSE METRICS: Total DLP (mGy-cm): 844.3 FINDINGS: Lungs: Calcified granulomas in the lung bases. Liver: Hepatic steatosis. No significant focal hepatic lesions. Small simple cyst in the right lobe of the liver measuring 10 mm. No follow-up indicated. Gallbladder and biliary ducts: Surgically absent gallbladder. No significant biliary ductal dilatation. Pancreas: Fatty atrophy of the pancreas which is otherwise unremarkable. Spleen: Normal. No splenomegaly. Adrenal glands: Normal. No mass. Kidneys and ureters: No suspicious renal lesions. No hydronephrosis or nephrolithiasis. No ureteral stones. Stomach and bowel: Normal caliber of the bowel without evidence of obstruction. No focal bowel wall thickening or inflammation. Mild fecal impaction in the rectum. Appendix: Not visualized with certainty. No inflammatory changes adjacent to the cecum. Intraperitoneal space: Unremarkable. No free air. No significant fluid collection. Vasculature: Unremarkable. No abdominal aortic aneurysm. Lymph nodes: Unremarkable. No enlarged lymph nodes. Urinary bladder: Urinary bladder unremarkable. Reproductive: Mild enlargement of the prostate gland with mild mass effect on the inferior wall of the urinary bladder. Bones/joints: No significant focal osseous lesions. No fractures or malalignment. Soft tissues: Unremarkable. CT/CT abdomen pelvis w con* [id number] IMPRESSION: 1. No acute findings in the abdomen or pelvis. 2. Hepatic steatosis. 3. Mild nonspecific enlargement of the prostate gland with mild mass effect on the inferior wall of the urinary bladder. 4. Mild fecal impaction in the rectum.
[2025-05-10 15:38] LABS: Lactic Sepsis W/Reflex 3.6 mmol/L (0.5-2.2)
--- NOTE | 2025-05-10 15:45 | ED_ITS ---
HPI - Abdominal Pain 2 General: Chief Complaint: Abdominal Pain Stated Complaint: abd pain , bloating, chills Time Seen by Provider: 05/10/25 14:19 History of Present Illness: 65-year-old male presents emergency room planing of abdominal pain bloating and chills difficult time swallowing. He is able to swallow saliva he has had some nausea and vomiting is complaining of abdominal pain as well Associated Symptoms: Denies chills, coffee ground emesis, dysuria, fever(s), hematochezia, hematemesis, melena, nausea and vomiting Related Data Home Medications ?Medication ?Instructions ?Recorded ?Confirmed ascorbate calcium (vitamin C) 500 500 mg PO DAILY 02/1803/04/25 mg tablet glimepiride 4 mg tablet 4 mg PO DAILY 03/06/2203/04 lisinopril 20 mg tablet 20 mg PO DAILY 03/06/2202/18 metoprolol tartrate 100 mg tablet 50 mg PO BID 2 03/08/25 potassium citrate 1 tab PO DAILY 03/06/2202/18 Previous Rx's ?Medication ?Instructions ?Recorded hydrocodone 5 mg-acetaminophen 325 1 tab PO Q8H PRN pa in #10 tabs 01/08/24 mg tablet ondansetron 8 mg disintegrating 8 mg PO Q8H PRN nausea and 02/10/25 tablet vomiting #3 tabs Allergies Allergy/AdvReac Type Severity Reaction Status Date / Time No Known Allergies Allergy Verified 05/10/25 14:18 Review of Systems 2 Const: Denies: fever(s) or chills Card: Denies: chest pain Resp: Denies: dyspnea GI: Reports: abdominal pain; Denies: nausea, vomiting, hematemesis, coffee ground emesis, hematochezia or melena : Denies: dysuria, urinary frequency or urinary urgency Musc: Denies: neck pain or back pain Skin/Breast: Denies: rash PFSH ED 2 PFSH: Medical History History of colon polyps Borderline diabetes Colon cancer screening Surgical History Hx of appendectomy Hx of colonoscopy with polypectomy Hx of cholecystectomy Social History Smoking and tobacco/nicotine status: never used tobacco/nicotine Physical Exam 2 Const: GENERAL APPEARANCE: cooperative ORIENTATION/CONSCIOUSNESS: Yes awake, Yes oriented to person, Yes oriented to place and Yes oriented to time HENMT: COMMON NORMALS: normocephalic, atraumatic and hearing grossly normal bilaterally HEAD & SCALP: normocephalic and atraumatic Resp: COMMON NORMALS: normal respiratory effort, No retractions, No use of accessory muscles and clear to auscultation bilaterally AUSCULTATION: clear to auscultation bilaterally Cardio: COMMON NORMALS: regular rate, regular rhythm and No murmurs present (Cardio) RATE: regular rate RHYTHM: regular rhythm GI: COMMON NORMALS: Soft to palpation and No hepatosplenomegaly present A USCULTATION: Yes normoactive bowel sounds PALPATION: Yes Soft to palpation, No Tenderness to palpation present (GI), No Guarding due to palpation present (GI) and Yes No hepatosplenomegaly present Extremity: COMMON NORMALS: normal to inspection, capillary refill normal, no clubbing, cyanosis or edema, no calf tenderness and no pedal edema Neuro: SENSORIUM/ORIENTATION: Yes oriented to person, Yes oriented to place and Yes oriented to time Skin: COMMON NORMALS: no rashes or lesions noted GENERAL SKIN EXAM: no rashes or lesions noted Course 2 Vital Signs: Vital signs: Vital Signs Temperature 98.2 F 05/10/25 14:09 Pulse Rate 112 H 05/10/25 14:09 Blood Pressure 116/81 05/10/25 14:09 Pulse Oximetry 98 05/10/25 14:09 Oxygen Delivery Me thod Room Air 05/10/25 14:09 MDM - Abdominal Pain Medical Decision Making Dr. Norton Medical Records I reviewed the patient's medical records. Lab Data I reviewed the patient's lab results. 05/10/25 14:25 05/10/25 14:25 Labs/Radiology: Radiology Impressions Neck CT 05/10/25 14:29 IMPRESSION: 1. There are multiple small rim enhancing fluid collections adjacent to an enlarged and inflamed left palatine tonsil, consistent with left-sided peritonsillar abscesses. 2. Nonspecific circumferential wall thickening of the proximal esophagus which may reflect esophagitis or physiologic underdistention. Recommend clinical correlation for reflux or dysphagia. If symptoms persist, consider direct visualization with endoscopy for further evaluation. Chest X-Ray 05/10/25 14:30 IMPRESSION: No acute cardiopulmonary findings radiographically. Abdomen/Pelvis CT 05/10/25 15:31 IMPRESSION: 1. No acute findings in the abdomen or pelvis. 2. Hepatic steatosis. 3. Mild nonspecific enlargement of the prostate gland with mild mass effect on the inferior wall of the urinary bladder. 4. Mild fecal impaction in the rectum. Laboratory Results WBC 13.49 10^3/uL (3.29-11.43) H 05/10/25 14:25 RBC 5.53 10^6/uL (3.85-5.65) 05/10/25 14: Hgb 16.80 g/dL (11.27-16.99) 05/10/25 14: Hct 47.6 % (37-53) 05/10/25 14:25 MCV 86.1 fl (82-101) 05/10/25 14:25 MCH 30.4 pg (27-33) 05/10/25 14:25 MCHC 35.3 g/dL (30-55) 05/10/25 14:25 RDW 12.6 % (12.1-15.1) 05/10/25 14:25 Plt Count 192 10^3/cmm (157-399) 05/10/25 14:25 MPV 10.3 fL (7.4-10.4) 05/10/25 14:25 Neut % (Auto) 74.8 % 05/10/25 14:25 Lymph % (Auto) 14.7 % 05/10/25 14:25 [place] % (Auto) 9.5 % 05/10/25 14:25 Eos % (Auto) 0.1 % 05/10/25 14: Baso % (Auto) 0.2 % 05/10/25 14: Neut # (Auto) 10.10 10^3/uL (1.8-7.7) H 05/10/25 14:25 Lymph # (Auto) 2.0 10^3/uL (0.8-4.8) 05/10/25 14:25 [place] # (Auto) 1.3 10^3/uL (0.2-0.9) H 05/10/25 14:25 Eos # (Auto) 0.0 10^3/uL (0.0-0.8) 05/10/25 14:25 Baso # (Auto) 0.0 10^3/uL (0.0-0.1) 05/10/25 14:25 Nucleated RBC % (auto) 0 % 05/10/25 14: Nucleated RBCs # 0.0 /100WBC 05/10/25 14:25 Sodium 133 mmol/L (136-145) L 05/10/25 14:25 Potassium 3.9 mmol/L (3.5-5.1) 05/10/25 14:25 Chloride 93 mmol/L (98-107) L 05/10/25 14:25 Carbon Dioxide 22 mmol/L (22-29) 05/10/25 14: Anion Gap 21.9 (5-19) H 05/10/25 14:25 BUN 16 mg/dL (8-23) 05/10/25 14: Creatinine 0.8 mg/dL (0.7-1.2) 05/10/25 14:25 GFR Calculation 96.4 mL/min (90-130) 05/10/25 14:25 Glucose 319 mg/dL (65-115) H 05/10/25 14:25 Calculated Osmolality 289 mOsm/kg (285-295) 05/10/25 14:25 Lactic Acid 3.6 mmol/L (0.5-2.2) H 05/10/25 14:25 Calcium 9.7 mg/dL (8.5-10.5) 05/10/25 14:25 Total Bilirubin 1.8 mg/dL (0.15-1.2) H 05/10/25 14:25 AST 30 U/L (0-40) 05/10/25 14:25 ALT 45 U/L (0-41) H 05/10/25 14:25 Alkaline Phosphatase 94 U/L (40-130) 05/10/25 14:25 Total Protein 7.1 g/dL (6.6-8.7) 05/10/25 14:25 Albumin 4.1 g/dL (3.5-5.2) 05/10/25 14:25 Globulin 3.0 g/dL (1.3-4.6) 05/10/25 14:25 Lipase 12 U/L (13-60) L 05/10/25 14:25 Urine Color Yellow (Yellow) 05/10/25 16:12 Urine Appearance Clear (CLEAR) 05/10/25 16:12 Urine pH 5.5 (5-7) 05/10/25 16:12 Ur Specific [place] 1.080 (1.005-1.030) H 05/10/25 16:12 Urine Protein 2+ (Negative) A 05/10/25 16:12 Urine Glucose (UA) 3+ (Normal) H 05/10/25 16:12 Urine Ketones Trace (Negative) 05/10/25 16:12 Urine Blood Trace (Negative) A 05/10/25 16:12 Urine Nitrate Negative (Negative) 05/10/25 16:12 Urine Bilirubin Negative (Negative) 05/10/25 16:12 Urine Urobilinogen 1.0 mg/dL (Negative) 05/10/25 16:12 Ur Leukocyte Esterase Negative (Negative) 05/10/25 16:12 Urine RBC 0-2 /hpf (0-2) 05/10/25 16:12 Urine WBC 0-5 /hpf (0-5) 05/10/25 16:12 Ur Squamous Epith Cells 0-5 /hpf (0-5) 05/10/25 16:12 Amorphous Sediment Not Reportable 05/10/25 16:12 Urine Bacteria None seen /hpf (NONE) 05/10/25 16:12 Hyaline Casts 8.26 /lpf 05/10/25 16:12 Fine Granular Casts 0-4 /lpf H 05/10/25 16:12 All radiology interpretation(s) finalized by discharge Discharge Plan Discharge Patient Disposition: Xfer Short-Term Hosp Clinical Impression: Abscess, peritonsillar, Dysphagia Condition: Stable Print Language: Spanish Coding Level of Care Code ED 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
[2025-05-10] MEDS: iohexol 350 mg/mL 500 mL Btl (per mL) IV (15:57)
[2025-05-10 16:18] VITALS: BP 133/88; PULSE 107; O2SAT 94
[2025-05-10] MEDS: cefTRIAXone 1,000 mg SDV 1000 MG IVP (16:20)
[2025-05-10 16:27] LABS: Glucose Urine UA 3+ (Normal); Nitrate Urine Negative (Negative)
[2025-05-10 16:29] LABS: Add Urine Microscopic? YES
[2025-05-10 17:00] VITALS: BP 135/86; PULSE 106; O2SAT 94
[2025-05-10 17:01] LABS: Reflex Lactate Order REFLEX LACTIC ORDERD
[2025-05-10 17:10] LABS: Specific Gravity, Urine 1.080 (1.005-1.030); UA Slide Review UA Slide Review Perf
[2025-05-10 17:30] VITALS: BP 135/86; PULSE 106; O2SAT 94
[2025-05-10] MEDS: piperacillin-tazobactam 3.375 GM in sodium chloride 0.9% (plus) 50 ML IV (17:38)
[2025-05-10] MEDS: ampicillin-sulbactam 3 GM in sodium chloride 0.9% (plus) 50 ML IV (17:43)
[2025-05-10 17:50] LABS: Lactic Acid level (Lactate) 2.5 mmol/L (0.5-2.2)
[2025-05-10 18:30] VITALS: BP 142/89; PULSE 108; O2SAT 94
[2025-05-10 22:14] VITALS: BP 115/72; PULSE 100; RESP 16; O2SAT 94
== END 2025-05-10 22:40 | disposition short-term general hospital (02) ==
PROVIDERS: Physician Assistant; Emergency Provider Family Medicine
DX: J36 Peritonsillar abscess (principal); R13.10 Dysphagia, unspecified
CPT/HCPCS: 36415; 70491; 71045; 74177; 80053; 81001; 83605; 83690; 85025; 87040; 96361; 96372; 96374; 96375; 99285; J0295; J0696; J1100; J2543; J7030; J9999